=== PATIENT | male | born 1990 | race Caucasian/White ===

== ENCOUNTER 2019-08-13 11:38 | Emergency (ER) | payer MEDICAID ==
[~2019-08-13] VITALS: Ht 170.2 cm; Wt 72.6 kg
[2019-08-13 11:46] VITALS: Ht 170.2 cm; Wt 72.6 kg
[2019-08-13 12:37] LABS: CALCIUM 9.2 mg/dL (8.5-10.1); CALCIUM 9.3 mg/dL (8.5-10.1); CARBON DIOXIDE 26.5 mmol/L (21-32); CHLORIDE SERUM 104 mmol/L (98-107); CREATININE SERUM 1.1 mg/dL (0.7-1.3); GFR1 > 60 mL/min; GLUCOSE SERUM 116 mg/dL (74-106); MAGNESIUM 2.2 mg/dL (1.8-2.4); SODIUM SERUM 141 mmol/L (136-145)
[2019-08-13 13:53] VITALS: BP 111/70
== END 2019-08-13 13:53 | disposition home or self-care (01) ==
LOC: ED 11:38
PROVIDERS: Specialist
DX: G40.909 Epilepsy, unspecified, not intractable, without status epilepticus (principal)
CPT/HCPCS: J1885; J1953

== ENCOUNTER 2019-11-04 21:35 | Emergency (ER) | payer MEDICAID ==
[~2019-11-04] VITALS: Ht 167.6 cm; Wt 68.0 kg
[2019-11-04 21:39] VITALS: Ht 167.6 cm; Wt 68.0 kg
[2019-11-04 22:02] LABS: BASOPHIL % 0.3 % (0-2); PLATELET COUNT 155 x10^3mcL (130-400); RED CELL DISTRIBUTION WIDTH 13.6 % (11.5-14.5)
[2019-11-04 22:24] LABS: CALCIUM 9.5 mg/dL (8.5-10.1); CARBON DIOXIDE 22.7 mmol/L (21-32); CHLORIDE SERUM 103 mmol/L (98-107); CREATININE SERUM 1.3 mg/dL (0.7-1.3); GFR1 > 60 mL/min; GLUCOSE SERUM 133 mg/dL (74-106); POTASSIUM SERUM 3.8 mmol/L (3.5-5.1); SODIUM SERUM 141 mmol/L (136-145)
[2019-11-04 22:29] LABS: ALBUMIN 4.2 g/dL (3.4-5.0); ALKALINE PHOSPHATASE 94 U/L (46-116); ALT/SGPT 28 U/L (16-63); AST/SGOT 39 U/L (15-37); BILIRUBIN TOTAL 0.29 mg/dL (0.20-1.00); TOTAL PROTEIN, SERUM 7.8 g/dL (6.4-8.2)
[2019-11-04 22:48] LABS: AMPHETAMINE QUAL UR POSITIVE (See below)
[2019-11-05 00:31] VITALS: BP 119/76
== END 2019-11-05 00:15 | disposition home or self-care (01) ==
LOC: ED 21:35
PROVIDERS: Emergency Medicine
DX: G40.909 Epilepsy, unspecified, not intractable, without status epilepticus (principal); F19.10 Other psychoactive substance abuse, uncomplicated
CPT/HCPCS: 36415; J7030

== ENCOUNTER 2020-08-14 16:47 | Emergency (ER) | payer MEDICAID ==
[~2020-08-14] VITALS: Ht 172.7 cm; Wt 67.6 kg
[2020-08-14 17:28] VITALS: Ht 172.7 cm; Wt 67.6 kg
== END 2020-08-14 18:44 | disposition home or self-care (01) ==
LOC: ED 16:47
DX: S63.601A Unspecified sprain of right thumb, initial encounter (principal); W23.0XXA Caught, crushed, jammed, or pinched between moving objects, initial encounter; Y93.89 Activity, other specified; Y92.89 Other specified places as the place of occurrence of the external cause; Y99.8 Other external cause status